=== PATIENT | male | born 1990 | race Two or more races ===

== ENCOUNTER 2022-10-21 15:55 | Emergency (ER) | payer OTHER ==
[2022-10-21 16:11] VITALS: BP 112/78; PULSE 85; RESP 18; TEMP 98; BMI 44.9
[2022-10-21] MEDS ORDERED: KETOROLAC TROMETHAMINE 30 MG/1 ML VIAL IM ONE (16:51)
[2022-10-21] MEDS ORDERED: KETOROLAC TROMETHAMINE 30 MG/1 ML VIAL ONE (17:11)
== END 2022-10-21 20:21 | disposition home or self-care (01) ==
LOC: JERFT 15:55
PROC: 3E0233Z Introduction of Anti-inflammatory into Muscle, Percutaneous Approach (ICD-10-PCS; principal; 2022-10-21)
DX: S93.401A Sprain of unspecified ligament of right ankle, initial encounter (principal); M25.571 Pain in right ankle and joints of right foot; R22.41 Localized swelling, mass and lump, right lower limb; X50.1XXA Overexertion from prolonged static or awkward postures, initial encounter; Y93.67 Activity, basketball
CPT/HCPCS: 73610-TC-RT-FY; 73630-TC-RT-FY; 99284-25

== ENCOUNTER 2023-06-09 19:40 | Emergency (ER) | payer OTHER ==
[2023-06-09 19:57] VITALS: BP 135/74; PULSE 88; RESP 16; TEMP 100.1; BMI 33.5
[2023-06-09] MEDS ORDERED: ACETAMINOPHEN 500 MG TABLET (FP) ONE (22:33)
[2023-06-09] MEDS ORDERED: KETOROLAC TROMETHAMINE 60 MG/2 ML VIAL ONE (22:36)
[2023-06-09] MEDS: KETOROLAC TROMETHAMINE 60 MG/2 ML VIAL IM ONE (22:39)
== END 2023-06-09 22:51 | disposition home or self-care (01) ==
LOC: FER 19:40
PROC: 3E0233Z Introduction of Anti-inflammatory into Muscle, Percutaneous Approach (ICD-10-PCS; principal; 2023-06-09)
DX: M54.50 Low back pain, unspecified (principal); G89.29 Other chronic pain; R50.9 Fever, unspecified; R51.9 Headache, unspecified
CPT/HCPCS: 0241U-QW; 72100-TC-FY; 81003; 81015; 99284-25

== ENCOUNTER 2024-02-11 13:08 | Emergency (ER) | payer OTHER ==
[2024-02-11 13:23] VITALS: BP 140/89; PULSE 60; RESP 18; TEMP 98.4; BMI 33.5
[2024-02-11 14:43] LABS: HEMATOCRIT 47.6 % (35.4-49); HEMOGLOBIN 15.4 G/dL (11.7-16.9); MCH 31.5 pg (25.7-33.7); MCHC 32.3 g/dl (32.0-35.9); MEAN CELL VOLUME 97.6 fl (80-96); MEAN PLT VOLUME 8.3 fl (7.5-11.1); PLATELET COUNT 244.3 10^3/uL (134-434); RBC 4.88 10^6/uL (4.00-5.60); RDW 13.7 % (11.9-15.9); WHITE BLOOD COUNT 6.2 10^3/uL (4.0-10.8)
[2024-02-11 14:53] LABS: ALBUMIN 4.6 g/dl (3.4-5.0); BILIRUBIN,TOTAL 0.3 mg/dl (0.2-1); CALCIUM 9.4 mg/dl (8.5-10.1); CREATININE 0.9 mg/dl (0.6-1.3); MAGNESIUM 2.3 mg/dL (1.8-2.4); POTASSIUM 4.3 mmol/L (3.5-5.1); TOT PROT 7.1 g/dl (6.4-8.2)
[2024-02-11 16:54] LABS: HIV INTERPRETATION NEGATIVE (NEGATIVE)
[2024-02-11 17:37] LABS: PLATELET ESTIMATE ADEQUATE
== END 2024-02-11 15:35 | disposition home or self-care (01) ==
LOC: FER 13:08
DX: M25.531 Pain in right wrist (principal); R20.2 Paresthesia of skin; R20.0 Anesthesia of skin; R42 Dizziness and giddiness
CPT/HCPCS: 36415; 80053; 80061; 83036; 83735; 85025; 86803; 87389; 93005; 99284-25